=== PATIENT | female | born 1935 | race Caucasian/White ===

== ENCOUNTER 2016-12-13 13:29 | Emergency (ER) | payer MEDICARE, OTHER ==
[~2016-12-13] VITALS: Ht 165.1 cm; Wt 41.0 kg
[~2016-12-13 13:29] MED LIST: ADVA100A; ALBU6.7H INH; ASPI81TA45 PO; AZIT250T74 PO; CALCTAB98; ENAL5TAB PO; EYEDRO; ICAP; LORA-392 PO; LORTA10 PO; OMEP20CA5 PO; PRED20 PO; SIMV40TA OR; VIT D
[2016-12-13 13:32] VITALS: BP 170/70; PULSE 109; RESP 24; TEMP 97.5; O2SAT 96
[2016-12-13] MEDS ORDERED: ASPI81CH37 CHEW (13:56)
[2016-12-13] MEDS ORDERED: LORA-373 PO (13:56)
[2016-12-13] MEDS ORDERED: ADVA100A INH (13:56)
[2016-12-13] MEDS ORDERED: ENAL1SOL2 PO (13:56)
[2016-12-13] MEDS ORDERED: ALBU6.7H INH (13:56)
[2016-12-13] MEDS ORDERED: OMEP20TA PO (13:56)
[2016-12-13] MEDS ORDERED: PRED20 PO (13:56)
[2016-12-13 14:10] VITALS: RESP 22; O2SAT 96
--- NOTE | 2016-12-13 14:13 | PD ---
HPI Chief Complaint: Respiratory Distress Time Seen by Provider: 13:49 Travel History International Travel<30 days: No Contact w/Intl Traveler<30days: No Traveled to known affect area: No History of Present Illness HPI This patient complains of pain in her left chest wall. This located under her left breast. She's had it for 3 weeks. Her primary doctor evaluated a few days ago and did not recommend any testing. No injury. Denies productive cough or fever. She has oxygen and nebulizer dependent COPD and says she quit smoking 2 or 3 weeks ago. Severity is moderate. Duration 3 weeks. No fever. no alleviating factors PFSH Past Medical History Arthritis: Yes Asthma: Yes Autoimmune Disease: No Anxiety: No Depression: No Heart Rhythm Problems: No Cancer: No Cardiovascular Problems: Yes (CAD) High Cholesterol: Yes Chemotherapy: No Chest Pain: No Congestive Heart Failure: No COPD: Yes Cerebrovascular Accident: No Coronary Artery Disease: No Diabetes: No Endocrine: No Gastrointestinal Disorders: Yes (GERD) GERD: Yes Genitourinary: No Hiatal Hernia: No Hypertension: Yes Immune Disorder: No Kidney Stones: No Musculoskeletal: No Neurologic: No Psychiatric: No Reproductive: No Respiratory: Yes (COPD) Migraines: No Radiation Therapy: No Renal Failure: No Seizures: No Sickle Cell Disease: No Sleep Apnea: No Thyroid Disease: No Ulcer: No Tetanus Vaccination: > 5 Years Influenza Vaccination: Yes Past Surgical History Abdominal Surgery: No AICD: No Arteriovenous Shunt: No Cardiac Surgery: No Cholecystectomy: Yes Ear Surgery: No Endocrine Surgery: No Eye Surgery: Yes Genitourinary Surgery: No Gynecologic Surgery: No Hysterectomy: Yes Insulin Pump: No Joint Replacement: No Oral Surgery: No Pacemaker: No Thoracic Surgery: No Tonsillectomy: Yes Other Surgery: Yes (cholecystectomy,hysterectomy,tonsillectomy) Social History Alcohol Use: Yes (occassional) Tobacco Use: Yes Substance Use: No Allergies-Medications (Allergen,Severity, Reaction): Coded Allergies: Amoxicillin (Verified Allergy, Severe, 12/13/16) Reported Meds & Prescriptions Reported Meds & Active Scripts Active Reported Prednisone 20 Mg Tab 20 Mg PO BID Omeprazole 20 Mg Tab 20 Mg PO DAILY Lorazepam 0.5 Mg Tab 0.5 Mg PO DAILY PRN Advair Diskus Inh (Fluticasone-Salmeterol Inh) 100-50 Mcg/Blist Aer 1 Puff INH BID Rinse mouth after use. Epaned (Enalapril Maleate) 1 Mg/Ml Radha 5 Mg PO DAILY Aspirin Low Dose (Aspirin) 81 Mg Chew 81 Mg CHEW DAILY Proventil Hfa 6.7 GM Inh (Albuterol Sulfate) 90 Mcg/Act Aer 2 Puff INH Q6H PRN Review of Systems General / Constitutional: No: Fever Eyes: No: Visual changes HENT: No: Headaches Cardiovascular: Positive: Chest Pain or Discomfort, Tachycardia Respiratory: Positive: Shortness of Breath, Wheezing Gastrointestinal: No: Abdominal Pain Genitourinary: No: Dysuria Musculoskeletal: No: Pain Skin: No Rash Neurologic: No: Weakness Psychiatric: No: Depression Endocrine: No: Polydipsia Hematologic/Lymphatic: No: Easy Bruising Physical Exam Narrative GENERAL: Thin elderly well-developed patient in no apparent distress. SKIN: Warm and dry. HEAD: Atraumatic. Normocephalic. EYES: Pupils equal and round. No scleral icterus. No injection or drainage. ENT: No nasal bleeding or discharge. Mucous membranes pink and moist. NECK: Trachea midline. No JVD. CARDIOVASCULAR: Regular rate and rhythm. No murmur appreciated. RESPIRATORY: No accessory muscle use. Some diffuse expiratory wheezing. Breath sounds equal bilaterally. GASTROINTESTINAL: Abdomen soft, non-tender, nondistended. Hepatic and splenic margins not palpable. MUSCULOSKELETAL: No obvious deformities. No clubbing. No cyanosis. No edema. Has readily reproducible chest wall tenderness just lateral and distal to the left breast. There is no crepitus or bruising or paradoxical rib movement. NEUROLOGICAL: Awake and alert. No obvious cranial nerve deficits. Motor grossly within normal limits. Normal speech. PSYCHIATRIC: Appropriate mood and affect; insight and judgment normal. Data Data Last Documented VS Vital Signs Date Time Temp Pulse Resp B/P Pulse Ox O2 Delivery O2 Flow Rate FiO2 12/13/16 14:10 22 96 Nasal Cannula 2 12/13/16 13:47 106 12/13/16 13:32 97.5 170/70 Orders Chest, Single Ap (12/13/16 ) Electrocardiogram (12/13/16 14:01) Ecg Monitoring (12/13/16 14:01) Oximetry (12/13/16 14:01) Oxygen Administration (12/13/16 14:01) Albuterol-Ipratropium Neb (Duoneb Neb) (12/13/16 14:15) Methylprednisolone So Succ Inj (Solumedr (12/13/16 14:15) MDM Medical Decision Making Medical Screen Exam Complete: Yes Emergency Medical Condition: Yes Medical Record Reviewed: Yes Differential Diagnosis Contusion, pneumothorax, rib fracture Narrative Course I have reviewed the patient's electronic medical record. I reviewed her chest x-ray which is negative I reviewed her EKG which shows sinus rhythm and no ST elevation Extended cardiac monitoring reveals sinus rhythm I gave her series of 3 nebulizer treatments and a dose of Solu-Medrol Patient is having a flare of her oxygen and nebulizer dependent COPD. Her chest pain is clearly noncardiac chest wall pain. It is readily reproducible with palpation or torso movement. Patient is stable for outpatient follow-up. I wrote a few tramadol to use as breakthrough pain medication Patient uses a walker and I warned her about potential sedation We discussed fall risk She should call her primary physician tomorrow for reevaluation Diagnosis Primary Impression: Musculoskeletal chest pain Additional Impression: COPD exacerbation Additional Instructions: The patient was advised to follow up with their physician and return if they worsen. The patient was warned about potential sedation for the medications they will receive on prescription. Med/Other Pt SpecificInfo: Prescription(s) given Disposition: 01 DISCHARGE HOME Condition: Stable Ron Salguero MD Dec 13, 2016 14:12
[2016-12-13] MEDS ORDERED: methylPREDNISolone SOD SUCC 125 MG/2 ML VIAL IM SCH (14:15)
--- NOTE | 2016-12-13 14:34 | RADRPT ---
EXAM DATE/TIME: 12/13/2016 14:14 [facility] COMPARISON: CHEST SINGLE AP, January 05, 2016, 8:17. INDICATIONS : Shortness of breath. MEDICAL HISTORY : Chronic obstructive pulmonary disease. SURGICAL HISTORY : None. ENCOUNTER: Initial ACUITY: 1 day PAIN SCORE: 0/10 LOCATION: Bilateral chest FINDINGS: A single view of the chest demonstrates the lungs to be symmetrically aerated without evidence of mas s, infiltrate or effusion. The lungs are hyperaerated bilaterally. This is stable compared to the pr ior exam. The cardiomediastinal contours are unremarkable. Osseous structures are intact. There is s ome curvature of the thoracic spine to the right. There are some degenerative changes of the thoracic spine. CONCLUSION: No acute disease. No significant change has occurred. Mazin Bentley MD on December 13, 2016 at 14:32 Board Certified Radiologist. This report was verified electronically.
[2016-12-13] MEDS: RESP: ALBUTEROL 2.5 MG/IPRATROPIUM 0.5 MG NEB (SCH) INH (14:58)
[2016-12-13] MEDS ORDERED: TRAM50TA PO (16:12)
[2016-12-13] MEDS ORDERED: traMADol HCL 50 MG TAB PO ONE (16:15)
[2016-12-13 16:17] VITALS: BP 171/83; PULSE 95; RESP 20; O2SAT 96
--- NOTE | 2016-12-13 17:56 | EKG ---
Date Performed: 12/13/2016 Time Performed: 14:24:03 PTAGE: 81 years EKG: Sinus rhythm SEPTAL MYOCARDIAL INFARCTION ABNORMAL ECG PREVIOUS TRACING : 01/05/2016 08.52 Compared to previous tracing, nonspecific ST abnormality andre s resolved. DOCTOR: Thomas Siegel Interpretating Date/Time 12/13/2016 17:55:32
== END 2016-12-13 16:31 | disposition home or self-care (01) ==
LOC: NEPE 13:29
DX: R07.89 Other chest pain (principal); J44.1 Chronic obstructive pulmonary disease with (acute) exacerbation; R94.31 Abnormal electrocardiogram [ECG] [EKG]; J45.909 Unspecified asthma, uncomplicated; E78.00 Pure hypercholesterolemia, unspecified; J44.9 Chronic obstructive pulmonary disease, unspecified; I10 Essential (primary) hypertension; Z72.0 Tobacco use
CPT/HCPCS: 71010; 93005; 94640; 94664; 96372; 99283; J2930